=== PATIENT | female | born 1960 | race Caucasian/White ===

== ENCOUNTER → 2017-03-23 | Outpatient (CLI) | payer OTHER ==
--- NOTE | 2017-03-23 13:50 | RADRPT ---
EXAM DATE/TIME: 03/23/2017 00:00 [place] COMPARISON: No previous studies available for comparison. INDICATIONS : Atherosclerosis of [place] arteries of extremities with intermittent claudication, unspecified extremi ty TECHNIQUE: Five-station segmental examination of the lower extremities was performed pre and post extercise. Pulsed-cuff waveform tracings and pressures were recorded. Ankle-brachial indices and toe-brachial indices were calculated. PRESSURES (mmHg): Pre Exercise: Brachial (arm): Right 94 Left 92 Ankle: Right 149 Left 144 GRETCHEN: Right 1.59 Left 1.53 TBI: Right 1.10 Left 0.96 Post Exercise: Brachial (arm): Right 94 Not applicable Ankle: Right 156 Left 149 PULSED CUFF WAVEFORMS: Demonstrate normal amplitude bilaterally. CONCLUSION: Supernormal ABIs bilaterally. This can relate to calcified atherosclerotic plaque that artifactually elevates the ABIs. This can significantly limit the utility of ultrasound for screening. If there is strong clinical concern for significant steno-occlusive disease then CTA with runoff would be needed to further evaluate. Tiago Calles Jr., MD on March 23, 2017 at 13:46 Board Certified Radiologist. This report was verified electronically.
== END ==
LOC: HCAV 12:14
DX: I70.219 Atherosclerosis of native arteries of extremities with intermittent claudication, unspecified extremity (principal)
CPT/HCPCS: 93924